=== PATIENT | male | born 1940 | race Caucasian/White ===

== ENCOUNTER 2019-05-21 10:42 | Outpatient (CLI) | payer BC ==
--- NOTE | 2019-05-21 11:32 | RAD ---
TWO VIEWS CHEST: DATE: 05/21/2019. PROVIDED CLINICAL HISTORY: Dyspnea. FINDINGS: Comparison 12/19/2015. Cardiac and mediastinal silhouette is unchanged in appearance. Median sternoto my changes and CABG changes are demonstrated. There is patchy parenchymal opacity present at the rig ht lung base on the frontal view, not definite localized on the lateral. There is no pleural fluid o r pneumothorax apparent. IMPRESSION: Patchy right basilar airspace disease may reflect subsegmental atelectasis and/or infiltrate. Correl ate with concerns for pneumonia. Followup is recommended. POS: [facility]
== END 2019-05-21 10:43 | disposition home or self-care (01) ==
LOC: RAD 10:42
PROVIDERS: ATTEND Internal Medicine Critical Care Medicine
DX: R06.00 Dyspnea, unspecified (principal); J98.4 Other disorders of lung
CPT/HCPCS: 71046

== ENCOUNTER 2019-12-16 10:46 | Outpatient (CLI) | payer BC ==
--- NOTE | 2019-12-16 11:20 | RAD ---
EXAM: Chest 2 views: HISTORY: Dyspnea COMPARISON: None. FINDINGS: There is a normal-sized cardiomediastinal silhouette. The patient is status post sternotomy for CABG . There is no evidence of consolidation, mass, or pleural effusion. The bones are unremarkable. IMPRESSION: No evidence of acute cardiopulmonary disease
== END 2019-12-16 10:47 | disposition home or self-care (01) ==
LOC: BICRAD 10:46
PROVIDERS: ATTEND Internal Medicine Critical Care Medicine
DX: R06.00 Dyspnea, unspecified (principal)
CPT/HCPCS: 71046